=== PATIENT | male | born 2000 | race Hispanic/Latino ===

== ENCOUNTER 2019-04-23 16:13 | Emergency (ER) | payer OTHER, SELFPAY ==
[2019-04-23] MEDS ORDERED: LIDOCAINE 1% MPF 5 ML VIAL ONE (16:36)
[2019-04-23] MEDS ORDERED: AZITHROMYCIN 250 MG TAB ONE (16:36)
[2019-04-23] MEDS ORDERED: metroNIDAZOLE 500 MG TABLET ONE (16:37)
[2019-04-23] MEDS ORDERED: CEFTRIAXONE 500 MG/VIAL ONE (16:37)
--- NOTE | 2019-04-23 16:39 | EDPHYS ---
Physician Documentation [facility] Name: López Eduardo Age: 19 yrs Sex: Male : 2000 Arrival Date: 04/23/2019 Time: 16:15 Bed 11 Private MD: ED Physician Arpan Lang HPI: 04/22 16:34 This 19 yrs old Male presents to ER via Ambulatory with complaints of STD snw Exposure. 16:34 Onset: The symptoms/episode began/occurred suddenly. Associated signs and symptoms: The snw patient has no apparent associated signs or symptoms. The patient has not experienced similar symptoms in the past. The patient has not recently seen a physician. information on STI clinic given. Historical: - Allergies: 16:20 No Known Allergies; ss - Home Meds: 16:20 None [Active]; ss - PMHx: 16:20 None; ss - PSHx: 16:20 None; ss - Immunization history:: Adult Immunizations up to date. - Social history:: Smoking status: Patient reports the use of cigarette tobacco products, denies chronic smoking, but will smoke occasionally. ROS: 16:33 Constitutional: Negative for fever, chills, and weight loss, Eyes: Negative for injury, snw pain, redness, and discharge, ENT: Negative for injury, pain, and discharge, Neck: Negative for injury, pain, and swelling, Cardiovascular: Negative for chest pain, palpitations, and edema, Respiratory: Negative for shortness of breath, cough, wheezing, and pleuritic chest pain, Abdomen/GI: Negative for abdominal pain, nausea, vomiting, diarrhea, and constipation, Back: Negative for injury and pain, MS/Extremity: Negative for injury and deformity, Skin: Negative for injury, rash, and discoloration, Neuro: Negative for headache, weakness, numbness, tingling, and seizure, Psych: Negative for depression, anxiety, suicide ideation, homicidal ideation, and hallucinations. 16:33 : Positive for exposure to gonorrhea . Exam: 16:33 Constitutional: This is a well developed, well nourished patient who is awake, alert, snw and in no acute distress. Head/Face: Normocephalic, atraumatic. Eyes: Pupils equal round and reactive to light, extra-ocular motions intact. Lids and lashes normal. Conjunctiva and sclera are non-icteric and not injected. Cornea within normal limits. Periorbital areas with no swelling, redness, or edema. Chest/axilla: Normal chest wall appearance and motion. Nontender with no deformity. No lesions are appreciated. Cardiovascular: Regular rate and rhythm with a normal S1 and S2. No gallops, murmurs, or rubs. Normal PMI, no JVD. No pulse deficits. Respiratory: Lungs have equal breath sounds bilaterally, clear to auscultation and percussion. No rales, rhonchi or wheezes noted. No increased work of breathing, no retractions or nasal flaring. Abdomen/GI: Soft, non-tender, with normal bowel sounds. No distension or tympany. No guarding or rebound. No evidence of tenderness throughout. Skin: Warm, dry with normal turgor. Normal color with no rashes, no lesions, and no evidence of cellulitis. MS/ Extremity: Pulses equal, no cyanosis. Neurovascular intact. Full, normal range of motion. Neuro: Awake and alert, GCS 15, oriented to person, place, time, and situation. Cranial nerves II-XII grossly intact. Motor strength 5/5 in all extremities. Sensory grossly intact. Cerebellar exam normal. Normal gait. Psych: Awake, alert, with orientation to person, place and time. Behavior, mood, and affect are within normal limits. Vital Signs: 16:18 BP 145 / 66; Pulse 56; Resp 16; Temp 98.5(TE); Pulse Ox 99% on R/A; Weight 81.65 kg; ss Height 6 ft. 0 in. (182.88 cm); Pain 0/10; 16:18 Body Mass Index 24.41 (81.65 kg, 182.88 cm) ss MDM: 16:36 Data reviewed: vital signs, nurses notes. Data interpreted: Pulse oximetry: on room air snw is 99 %. Interpretation: normal. Counseling: I had a detailed discussion with the patient and/or guardian regarding: the historical points, exam findings, and any diagnostic results supporting the discharge/admit diagnosis, the need for outpatient follow up, to return to the emergency department if symptoms worsen or persist or if there are any questions or concerns that arise at home. Special discussion: I have referred the patient to see his PCP for further evaluation of high blood pressure. Based on the history and exam findings, there is no indication for further emergent testing or inpatient evaluation. I discussed with the patient/guardian the need to see the primary care provider for further evaluation of the symptoms. 16:37 Patient medically screened. adriel Administered Medications: 16:41 Drug: Zithromax 1 grams Route: PO; ss 17:01 Follow up: Response: No adverse reaction; Medication administered at discharge. ss 16:41 Drug: Flagyl 2 grams Route: PO; ss 17:01 Follow up: Response: No adverse reaction; Medication administered at discharge. 16:42 Drug: Rocephin (cefTRIAXone) 500 mg Route: IM; Site: right gluteus; ss 17:02 Follow up: Response: No adverse reaction; Medication administered at discharge. ss Disposition: 04/23 07:02 Co-signature as Attending Physician, Arpan Lang MD. rn Disposition: 04/23/19 16:38 Discharged to Home. Impression: Encounter for screening, unspecified. - Condition is Stable. - Discharge Instructions: Hypertension, Sexually Transmitted Disease, [id number], What You Need to Know About Personal Safety, Adult, Safe Sex. - Medication Reconciliation Form, Thank You Letter, Antibiotic Education, Prescription Opioid Use form. - Follow up: Emergency Department; When: As needed; Reason: Worsening of condition. Follow up: Private Physician; When: 2 - 3 days; Reason: Recheck today's complaints, Continuance of care, Re-evaluation by your physician. - Notes: No alcohol for 48 hours, follow up with STD clinic. Signatures: Yovany Napier MD MD cha Therrien, Shelly, SUPERINTENDENT HOUSE-C SUPERINTENDENT HOUSE-Csnw Arpan Lang MD MD rn Smirch, Shelby, RN RN ss Corrections: (The following items were deleted from the chart) 04/22 17:03 16:38 04/23/2019 16:38 Discharged to Home. Impression: Encounter for screening, ss unspecified. Condition is Stable. Forms are Medication Reconciliation Form, Thank You Letter, Antibiotic Education, Prescription Opioid Use. Follow up: Emergency Department; When: As needed; Reason: Worsening of condition. Follow up: Private Physician; When: 2 - 3 days; Reason: Recheck today's complaints, Continuance of care, Re-evaluation by your physician. snw
--- NOTE | 2019-04-23 16:39 | ER ---
Nurse's Notes [facility] Name: López Eduardo Age: 19 yrs Sex: Male : 2000 Arrival Date: 04/23/2019 Time: 16:15 Bed 11 Private MD: Diagnosis: Encounter for screening, unspecified Presentation: 04/22 16:18 Chief complaint: Patient states: "My girl called me saying that she had been tested ss positive for gonorrhea, so I need to get checked." Pt reports "red dots" x 5 days. Coronavirus screen: The patient has NOT traveled to a country currently being monitored by the [facility] within the last 14 days. Ebola Screen: Patient denies exposure to infectious person. Patient denies travel to an Ebola-affected area in the 21 days before illness onset. Initial Sepsis Screen: Does the patient meet any 2 criteria? No. Patient's initial sepsis screen is negative. Does the patient have a suspected source of infection? No. Patient's initial sepsis screen is negative. Risk Assessment: Do you want to hurt yourself or someone else? Patient reports no desire to harm self or others. 16:18 Method Of Arrival: Ambulatory ss 16:18 Acuity: JOSHUA 4 ss Historical: - Allergies: 16:20 No Known Allergies; ss - Home Meds: 16:20 None [Active]; ss - PMHx: 16:20 None; ss - PSHx: 16:20 None; ss - Immunization history:: Adult Immunizations up to date. - Social history:: Smoking status: Patient reports the use of cigarette tobacco products, denies chronic smoking, but will smoke occasionally. Screenin:20 Abuse screen: Denies threats or abuse. Denies injuries from another. Nutritional ss screening: No deficits noted. Tuberculosis screening: Never had TB. Fall Risk None identified. Assessment: 16:20 General: Appears in no apparent distress. comfortable, Behavior is calm, cooperative, ss Denies fever, feeling ill, fatigue, chills. Pain: Denies pain. Neuro: Level of Consciousness is awake, alert, obeys commands, Oriented to person, place, time, situation. Cardiovascular: Capillary refill < 3 seconds is brisk in bilateral fingers. Respiratory: Airway is patent Respiratory effort is even, unlabored, Respiratory pattern is regular, symmetrical. : Reports "red dots" to penis x 5 days. Is now, "getting better." Denies burning with urination, urinary frequency. EENT: Nares are clear Oral mucosa is moist. Throat is clear. Derm: Skin is intact, is healthy with good turgor, Skin is dry, Skin is pink, warm \\T\\ dry. normal. Musculoskeletal: Circulation, motion, and sensation intact. Range of motion: intact in all extremities, Swelling absent. Vital Signs: 16:18 BP 145 / 66; Pulse 56; Resp 16; Temp 98.5(TE); Pulse Ox 99% on R/A; Weight 81.65 kg; ss Height 6 ft. 0 in. (182.88 cm); Pain 0/10; 16:18 Body Mass Index 24.41 (81.65 kg, 182.88 cm) ED Course: 16:15 Patient arrived in ED. rg4 16:19 Triage completed. ss 16:20 Arm band placed on right wrist. ss 16:20 Patient has correct armband on for positive identification. Bed in low position. Call ss light in reach. 16:23 Anne Amaral FNP-C is [facility]. snw 16:23 Arpan Lang MD is Attending Physician. snw 16:28 Galina Astudillo RN is Primary Nurse. ss 16:42 No provider procedures requiring assistance completed. Patient did not have IV access ss during this emergency room visit. Administered Medications: 16:41 Drug: Zithromax 1 grams Route: PO; ss 17:01 Follow up: Response: No adverse reaction; Medication administered at discharge. ss 16:41 Drug: Flagyl 2 grams Route: PO; ss 17:01 Follow up: Response: No adverse reaction; Medication administered at discharge. ss 16:42 Drug: Rocephin (cefTRIAXone) 500 mg Route: IM; Site: right gluteus; ss 17:02 Follow up: Response: No adverse reaction; Medication administered at discharge. Outcome: 16:38 Discharge ordered by . snw 16:42 Discharge instructions given to patient, Instructed on discharge instructions, follow ss up and referral plans. medication usage, Demonstrated understanding of instructions, follow-up care, medications. 17:01 Discharged to home ambulatory. ss 17:01 Condition: good 17:03 Patient left the ED. ss Signatures: Anne Amaral FNP-C VEHICLE CHECK IN CLERK-Csnw Galina Astudillo, RN RN ss Pato, Jackie rg4
[2019-04-23 17:48] VITALS: BP 145/66; TEMP 98.5; O2SAT 99
== END 2019-04-23 17:03 | disposition home or self-care (01) ==
LOC: ER 16:13
DX: Z20.2 Contact with and (suspected) exposure to infections with a predominantly sexual mode of transmission (principal); F17.210 Nicotine dependence, cigarettes, uncomplicated
CPT/HCPCS: 96372; 99283; J0696

== ENCOUNTER 2019-05-01 14:21 | Emergency (ER) | payer SELFPAY ==
--- NOTE | 2019-05-01 15:47 | ER ---
Nurse's Notes [facility] Name: López Eduardo Age: 19 yrs Sex: Male : 2000 Arrival Date: 05/01/2019 Time: 14:23 Bed 13 Private MD: Diagnosis: Acute pharyngitis Presentation: 04/30 14:27 Chief complaint: Patient states: Headache and sore throat since 2 weeks ago. It went ca1 away 4-5 days, but came back since Tuesday. Denies cough, congestion, and fever. Was here last week for Gonorrhea treatment. Today, had blood work done and gonorrhea testing. "I just want to know if this headache is from the gonorrhea or something else". Coronavirus screen: The patient has NOT traveled to a country currently being monitored by the [facility] within the last 14 days. The patient has NOT had contact with any known and/or suspected case of coronavirus. Ebola Screen: Patient negative for fever greater than or equal to 101.5 degrees Fahrenheit, and additional compatible Ebola Virus Disease symptoms Patient denies exposure to infectious person. Patient denies travel to an Ebola-affected area in the 21 days before illness onset. No symptoms or risks identified at this time. Initial Sepsis Screen: Does the patient meet any 2 criteria? Yes Does the patient have a suspected source of infection? No. Patient's initial sepsis screen is negative. Risk Assessment: Do you want to hurt yourself or someone else? Patient reports no desire to harm self or others. Onset of symptoms was May 01, 2019. 14:27 Method Of Arrival: Ambulatory ca1 14:27 Acuity: JOSHUA 3 ca1 Triage Assessment: 15:00 Headache History: The patient has had previous headaches and this one is similar to rb1 previous episodes. Historical: - Allergies: 14:32 No Known Allergies; ca1 - PMHx: 14:32 None; ca1 - PSHx: 14:32 None; ca1 - Immunization history:: Adult Immunizations up to date, Flu vaccine is not up to date. - Social history:: Smoking status: Reported history of juuling and/or vaping. Screenin:00 Abuse screen: Denies threats or abuse. Nutritional screening: No deficits noted. rb1 Tuberculosis screening: No symptoms or risk factors identified. Fall Risk None identified. Assessment: 15:00 General: Appears in no apparent distress. comfortable, Behavior is calm, cooperative. rb1 Pain: Complains of pain in head Pain currently is 6 out of 10 on a pain scale. Neuro: Level of Consciousness is awake, alert, obeys commands, Oriented to person, place, time, situation. Neuro: Reports headache in entire. Cardiovascular: Capillary refill < 3 seconds is brisk in bilateral fingers. Respiratory: Reports cough that is Airway is patent Respiratory effort is even, unlabored, Respiratory pattern is regular, symmetrical. GI: No signs and/or symptoms were reported involving the gastrointestinal system. : No signs and/or symptoms were reported regarding the genitourinary system. Derm: Skin is pink, warm \\T\\ dry. 15:42 Reassessment: Patient appears in no apparent distress at this time. No changes from rb1 previously documented assessment. Vital Signs: 14:27 BP 134 / 85; Pulse 73; Resp 17 S; Temp 97.9(TE); Pulse Ox 98% on R/A; Weight 81.65 kg ca1 (R); Height 6 ft. 0 in. (182.88 cm) (R); Pain 5/10; 14:27 Body Mass Index 24.41 (81.65 kg, 182.88 cm) ca1 ED Course: 14:23 Patient arrived in ED. rg4 14:32 Triage completed. ca1 14:32 Arm band placed on right wrist. ca1 15:00 Jesica Lara FNP-C is [facility]. kb 15:00 Arpan Lang MD is Attending Physician. kb 15:00 Patient has correct armband on for positive identification. Bed in low position. Call rb1 light in reach. Side rails up X 1. Pulse ox on. NIBP on. 15:16 Vandana Grant, RN is Primary Nurse. rb1 15:23 Strep Sent. rb1 15:59 No provider procedures requiring assistance completed. Patient did not have IV access rb1 during this emergency room visit. Administered Medications: No medications were administered Outcome: 15:47 Discharge ordered by . kb 15:59 Patient left the ED. rb1 15:59 Discharged to home ambulatory. rb1 15:59 Condition: stable 15:59 Discharge instructions given to patient, Instructed on discharge instructions, follow up and referral plans. Demonstrated understanding of instructions, follow-up care, Prescriptions given X none Signatures: Jesica Lara FNP-C FNP-Ckb Barber, Rebecca, RN RN rb1 Pato, Jackie rg4 Pina Zuleta, RN RN ca1
--- NOTE | 2019-05-01 15:48 | EDPHYS ---
Physician Documentation [facility] Name: López Eduardo Age: 19 yrs Sex: Male : 2000 Arrival Date: 05/01/2019 Time: 14:23 Bed 13 Private MD: ED Physician Arpan Lang HPI: 04/30 15:44 This 19 yrs old Male presents to ER via Ambulatory with complaints of Cough, kb Headache. 15:44 The patient or guardian reports headache and sore throat. Onset: The symptoms/episode kb began/occurred 2 week(s) ago. Severity of symptoms: At their worst the symptoms were mild, moderate, in the emergency department the symptoms are unchanged. Modifying factors: The symptoms are alleviated by nothing, the symptoms are aggravated by nothing. Associated signs and symptoms: Pertinent positives: sore throat, Pertinent negatives: chest pain, diarrhea, ear ache, fever, nausea, rhinorrhea, vomiting. The patient has not experienced similar symptoms in the past. The patient has not recently seen a physician. Historical: - Allergies: 14:32 No Known Allergies; ca1 - PMHx: 14:32 None; ca1 - PSHx: 14:32 None; ca1 - Immunization history:: Adult Immunizations up to date, Flu vaccine is not up to date. - Social history:: Smoking status: Reported history of juuling and/or vaping. ROS: 15:43 Constitutional: Negative for fever, chills, and weight loss, Neck: Negative for injury, kb pain, and swelling, Cardiovascular: Negative for chest pain, palpitations, and edema, Respiratory: Negative for shortness of breath, cough, wheezing, and pleuritic chest pain, Abdomen/GI: Negative for abdominal pain, nausea, vomiting, diarrhea, and constipation, Back: Negative for injury and pain, MS/Extremity: Negative for injury and deformity, Skin: Negative for injury, rash, and discoloration. 15:43 ENT: Positive for sore throat. 15:43 Neuro: Positive for headache. Exam: 15:43 Constitutional: This is a well developed, well nourished patient who is awake, alert, kb and in no acute distress. Head/Face: Normocephalic, atraumatic. Eyes: Pupils equal round and reactive to light, extra-ocular motions intact. Lids and lashes normal. Conjunctiva and sclera are non-icteric and not injected. Cornea within normal limits. Periorbital areas with no swelling, redness, or edema. ENT: Nares patent. No nasal discharge, no septal abnormalities noted. Tympanic membranes are normal and external auditory canals are clear. Oropharynx with no redness, swelling, or masses, exudates, or evidence of obstruction, uvula midline. Mucous membranes moist. Neck: Trachea midline, no thyromegaly or masses palpated, and no cervical lymphadenopathy. Supple, full range of motion without nuchal rigidity, or vertebral point tenderness. No Meningismus. Chest/axilla: Normal chest wall appearance and motion. Nontender with no deformity. No lesions are appreciated. Cardiovascular: Regular rate and rhythm with a normal S1 and S2. No gallops, murmurs, or rubs. Normal PMI, no JVD. No pulse deficits. Respiratory: Lungs have equal breath sounds bilaterally, clear to auscultation and percussion. No rales, rhonchi or wheezes noted. No increased work of breathing, no retractions or nasal flaring. Abdomen/GI: Soft, non-tender, with normal bowel sounds. No distension or tympany. No guarding or rebound. No evidence of tenderness throughout. Back: No spinal tenderness. No costovertebral tenderness. Full range of motion. Skin: Warm, dry with normal turgor. Normal color with no rashes, no lesions, and no evidence of cellulitis. MS/ Extremity: Pulses equal, no cyanosis. Neurovascular intact. Full, normal range of motion. Neuro: Awake and alert, GCS 15, oriented to person, place, time, and situation. Cranial nerves II-XII grossly intact. Motor strength 5/5 in all extremities. Sensory grossly intact. Cerebellar exam normal. Normal gait. Vital Signs: 14:27 BP 134 / 85; Pulse 73; Resp 17 S; Temp 97.9(TE); Pulse Ox 98% on R/A; Weight 81.65 kg ca1 (R); Height 6 ft. 0 in. (182.88 cm) (R); Pain 5/10; 14:27 Body Mass Index 24.41 (81.65 kg, 182.88 cm) ca1 MDM: 15:00 Patient medically screened. kb 15:44 Data reviewed: vital signs, nurses notes. Data interpreted: Pulse oximetry: on room air kb is 98 %. Interpretation: normal. Counseling: I had a detailed discussion with the patient and/or guardian regarding: the historical points, exam findings, and any diagnostic results supporting the discharge/admit diagnosis, lab results, the need for outpatient follow up, a family practitioner, to return to the emergency department if symptoms worsen or persist or if there are any questions or concerns that arise at home. 04/30 15:13 Order name: Strep; Complete Time: 15:43 kb 04/30 15:47 Order name: Throat Culture EDMS Administered Medications: No medications were administered Disposition: 15:59 Co-signature as Attending Physician, Arpan Lang MD. rn Disposition: 05/01/19 15:47 Discharged to Home. Impression: Acute pharyngitis. - Condition is Stable. - Discharge Instructions: Pharyngitis, [id number], Sore Throat, [id number]. - Medication Reconciliation Form, Thank You Letter, Antibiotic Education, Prescription Opioid Use, Work release form form. - Follow up: Emergency Department; When: As needed; Reason: Worsening of condition. Follow up: Private Physician; When: 2 - 3 days; Reason: Recheck today's complaints, Continuance of care, Re-evaluation by your physician. Signatures: Dispatcher [employer] EDMS Jesica Lara, GENERAL OFFICE ASSISTANT-C GENERAL OFFICE ASSISTANT-Ckb Arpan Lang MD MD rn Barber, Rebecca, RN RN rb1 Pina Zuleta RN RN ca1 Corrections: (The following items were deleted from the chart) 15:47 15:47 05/01/2019 15:47 Discharged to Home. Impression: Headache. Condition is Stable. kb Forms are Medication Reconciliation Form, Thank You Letter, Antibiotic Education, Prescription Opioid Use. Follow up: Emergency Department; When: As needed; Reason: Worsening of condition. Follow up: Private Physician; When: 2 - 3 days; Reason: Recheck today's complaints, Continuance of care, Re-evaluation by your physician. kb 15:59 15:47 05/01/2019 15:47 Discharged to Home. Impression: Acute pharyngitis. Condition is rb1 Stable. Forms are Medication Reconciliation Form, Thank You Letter, Antibiotic Education, Prescription Opioid Use. Follow up: Emergency Department; When: As needed; Reason: Worsening of condition. Follow up: Private Physician; When: 2 - 3 days; Reason: Recheck today's complaints, Continuance of care, Re-evaluation by your physician. kb
[2019-05-01 16:45] VITALS: BP 134/85; TEMP 97.9; O2SAT 98
== END 2019-05-01 15:59 | disposition home or self-care (01) ==
LOC: ER 14:21
DX: J02.9 Acute pharyngitis, unspecified (principal)
CPT/HCPCS: 87070; 87081; 99283

== ENCOUNTER 2019-09-25 17:29 | Emergency (ER) | payer SELFPAY ==
--- NOTE | 2019-09-25 18:20 | ER ---
Nurse's Notes [facility] Name: López Eduardo Age: 19 yrs Sex: Male : 2000 Arrival Date: 09/25/2019 Time: 17:32 Bed 20 Private MD: Diagnosis: Candidal balanitis;Contact with and (suspected) exposure to infections with a predominantly sexual mode of transmission Presentation: 09/24 17:38 Chief complaint: Patient states: white penile discharge x 3 weeks. Pt reports he has ll1 been seen 3 times at a clinic and was given two rounds of antibiotics and a treatment for yeast infection, and reports that symptoms have mildly improved, but have not gone away. Coronavirus screen: Client denies travel out of the [place] in the last 14 days. At this time, the client does not indicate any symptoms associated with coronavirus-19. Ebola Screen: Patient denies exposure to infectious person. Patient denies travel to an Ebola-affected area in the 21 days before illness onset. Initial Sepsis Screen: Does the patient meet any 2 criteria? No. Patient's initial sepsis screen is negative. Does the patient have a suspected source of infection? No. Patient's initial sepsis screen is negative. Risk Assessment: Do you want to hurt yourself or someone else? Patient reports no desire to harm self or others. Onset of symptoms was August 2019. 17:38 Method Of Arrival: Ambulatory ll1 17:38 Acuity: JOSHUA 4 ll1 Historical: - Allergies: 17:41 No Known Allergies; ll1 - Immunization history:: Adult Immunizations up to date. - Social history:: Smoking status: Patient reports the use of cigarette tobacco products, denies chronic smoking, but will smoke occasionally. Screenin:30 Abuse screen: Denies threats or abuse. Denies injuries from another. Nutritional jr10 screening: No deficits noted. Tuberculosis screening: No symptoms or risk factors identified. Fall Risk None identified. Assessment: 18:30 General: Appears in no apparent distress. Behavior is calm, cooperative, appropriate jr10 for age. Pain: Denies pain. : Reports discharge, from penis that is white, x3 week, reports that he has been tested negative for STD several times and was told he had a yeast infection. Pt reports taking medication to clear up yeast without relief. Pt denies any dysuria, hematuria. No other complaints reported. Vital Signs: 17:38 BP 143 / 80; Pulse 55; Resp 15; Temp 98.2(TE); Pulse Ox 100% on R/A; Weight 83.91 kg; ll1 Height 6 ft. 0 in. (182.88 cm); Pain 0/10; 17:38 Body Mass Index 25.09 (83.91 kg, 182.88 cm) ll1 ED Course: 17:32 Patient arrived in ED. bp1 17:40 Triage completed. ll1 17:41 Arm band placed on right wrist. ll1 18:07 Omar Cunningham MD is Attending Physician. ps1 18:21 Vani Rebolledo, RN is Primary Nurse. jr10 18:30 Patient has correct armband on for positive identification. Bed in low position. Call jr10 light in reach. 18:59 No provider procedures requiring assistance completed. Patient did not have IV access jr10 during this emergency room visit. Administered Medications: 18:47 Drug: Rocephin (cefTRIAXone) 250 mg Route: IM; Site: right gluteus; jr10 18:47 Drug: AZITHromycin 1 grams Route: PO; jr10 18:55 Not Given (Other Intervention Used): DiFLUcan 150 mg PO once ss 18:57 Drug: DiFLUcan 200 mg Route: PO; jr10 Outcome: 18:19 Discharge ordered by . ps1 19:16 Discharged to home ambulatory. vc 19:16 Condition: good 19:16 Discharge instructions given to patient, Instructed on discharge instructions, follow up and referral plans. Demonstrated understanding of instructions, follow-up care. 19:17 Patient left the ED. vc Signatures: Omar Cunningham MD MD ps1 Juliana Felix RN RN vc Terri Kaye RN RN ll1 Tanya Kaye bp1 Vani Rebolledo RN RN jr10 Galina Astudillo RN
--- NOTE | 2019-09-25 18:20 | EDPHYS ---
Physician Documentation [facility] Name: López Eduardo Age: 19 yrs Sex: Male : 2000 Arrival Date: 09/25/2019 Time: 17:32 Bed 20 Private MD: ED Physician Omar Cunningham HPI: 09/24 18:14 This 19 yrs old Male presents to ER via Ambulatory with complaints of STD ps1 Exposure. 18:14 Patient states that he has exposure to STD. He has white discharge from around glans. ps1 New sexual encounter with different female since being treated last time. No condom use. No fever, no rash. Historical: - Allergies: 17:41 No Known Allergies; ll1 - Immunization history:: Adult Immunizations up to date. - Social history:: Smoking status: Patient reports the use of cigarette tobacco products, denies chronic smoking, but will smoke occasionally. ROS: 18:14 Constitutional: Negative for fever, chills, and weight loss, Eyes: Negative for injury, ps1 pain, redness, and discharge, ENT: Negative for injury, pain, and discharge, Cardiovascular: Negative for chest pain, palpitations, and edema, Respiratory: Negative for shortness of breath, cough, wheezing, and pleuritic chest pain, Abdomen/GI: Negative for abdominal pain, nausea, vomiting, diarrhea, and constipation, Skin: Negative for injury, rash, and discoloration, Neuro: Negative for headache, weakness, numbness, tingling, and seizure. 18:14 : Positive for urinary symptoms, penile discharge. Exam: 18:14 Constitutional: This is a well developed, well nourished patient who is awake, alert, ps1 and in no acute distress. Head/Face: Normocephalic, atraumatic. Eyes: Pupils equal round and reactive to light, extra-ocular motions intact. Lids and lashes normal. Conjunctiva and sclera are non-icteric and not injected. Cardiovascular: Regular rate and rhythm. No gallops, murmurs, or rubs. Normal PMI, no JVD. No pulse deficits. Respiratory: Lungs have equal breath sounds bilaterally, clear to auscultation and percussion. No rales, rhonchi or wheezes noted. No increased work of breathing, no retractions or nasal flaring. Abdomen/GI: Soft, non-tender, with normal bowel sounds. No distension or tympany. No guarding or rebound. No evidence of tenderness throughout. Skin: Warm, dry with normal turgor. Normal color with no rashes, no lesions, and no evidence of cellulitis. 18:14 : Male external genitalia: Patient is not circumisioned. tg appearing infection surrounding glans and underneath the foreskin. No discharge from head. . Vital Signs: 17:38 BP 143 / 80; Pulse 55; Resp 15; Temp 98.2(TE); Pulse Ox 100% on R/A; Weight 83.91 kg; ll1 Height 6 ft. 0 in. (182.88 cm); Pain 0/10; 17:38 Body Mass Index 25.09 (83.91 kg, 182.88 cm) ll1 MDM: 18:14 Data reviewed: vital signs, nurses notes, and as a result, I will discharge patient, ps1 administer antibiotics. Counseling: I had a detailed discussion with the patient and/or guardian regarding: the historical points, exam findings, and any diagnostic results supporting the discharge/admit diagnosis, the need for outpatient follow up, a family practitioner, to return to the emergency department if symptoms worsen or persist or if there are any questions or concerns that arise at home. 18:19 Patient medically screened. ps1 18:23 ED course: Needs HIV/Syphilis testing at health department. . ps1 Administered Medications: 18:47 Drug: Rocephin (cefTRIAXone) 250 mg Route: IM; Site: right gluteus; jr10 18:47 Drug: AZITHromycin 1 grams Route: PO; jr10 18:55 Not Given (Other Intervention Used): DiFLUcan 150 mg PO once ss 18:57 Drug: DiFLUcan 200 mg Route: PO; jr10 Disposition: 09/25/19 18:19 Discharged to Home. Impression: Candidal balanitis, Contact with and (suspected) exposure to infections with a predominantly sexual mode of transmission. - Condition is Stable. - Discharge Instructions: Balanitis, Sexually Transmitted Disease. - Medication Reconciliation Form, Thank You Letter, Antibiotic Education, Prescription Opioid Use form. - Follow up: Private Physician; When: 1 - 2 days. Follow up: Emergency Department; When: As needed; Reason: Fever > 102 F, Worsening of condition. - Problem is new. - Symptoms are unchanged. Signatures: Galina Astudillo RN RN ss Omar Cunningham MD MD ps1 Juliana Felix RN RN vc Terri Kaye RN RN ll1 Vani Rebolledo RN RN jr10 Corrections: (The following items were deleted from the chart) 19:17 18:19 09/25/2019 18:19 Discharged to Home. Impression: Candidal balanitis; Contact with vc and (suspected) exposure to infections with a predominantly sexual mode of transmission. Condition is Stable. Forms are Medication Reconciliation Form, Thank You Letter, Antibiotic Education, Prescription Opioid Use. Follow up: Private Physician; When: 1 - 2 days. Follow up: Emergency Department; When: As needed; Reason: Fever > 102 F, Worsening of condition. Problem is new. Symptoms are unchanged. ps1
[2019-09-25] MEDS ORDERED: WATER FOR INJ,STERILE 10 ML ONE (18:44)
[2019-09-25] MEDS ORDERED: CEFTRIAXONE 250 MG/VIAL ONE (18:44)
[2019-09-25] MEDS ORDERED: AZITHROMYCIN 250 MG TAB ONE (18:44)
[2019-09-25] MEDS ORDERED: FLUCONAZOLE 100 MG TAB ONE (18:51)
[2019-09-25 19:22] VITALS: BP 143/80; TEMP 98.2; O2SAT 100
== END 2019-09-25 19:17 | disposition home or self-care (01) ==
LOC: ER 17:29
DX: B37.42 Candidal balanitis (principal); F17.210 Nicotine dependence, cigarettes, uncomplicated
CPT/HCPCS: 96372; 99283; J0696